=== PATIENT | female | born 1980 | race Caucasian/White ===

== ENCOUNTER → 2018-12-01 18:47 | Emergency (ER) | payer BC ==
[~2018-12-01 18:47] MED LIST: Cephalexin CAP* 500 MG PO ONE; Tetan/Diph/Pertus SYR(Tdap)* 0.5 ML SYR(BOOSTRIX) use SYR IM ONE
--- NOTE | 2018-12-01 20:33 | ED ---
Laceration/Wound HPI - HPI Summary HPI Summary: Patient complains of laceration to dorsal surface of left hand proximal to MCP of second digit of left hand. Denies any other injury symptoms or pain. No anti-coag. Bleeding controlled. - History of Current Complaint Stated Complaint: "LEFT POINTER CUT" PER PT Time Seen by Provider: 12/01/18 19:59 Hx Obtained From: Patient Mechanism of Injury: Sharp/Blunt Trauma Onset/Duration: Sudden Onset Aggravating: Nothing Alleviating: Nothing Current Severity: None Pain Intensity: 0 Pain Scale Used: 0-10 Numeric Associated Signs & Symptoms: Negative - Allergy/Home Medications Allergies/Adverse Reactions: Allergies Allergy/AdvReac Type Severity Reaction Status Date / Time No Known Allergies Allergy Verified 12/01/18 19:13 PMH/Surg Hx/FS Hx/Imm Hx Endocrine/Hematology History: Denies: Hx Anticoagulant Therapy Cardiovascular History: Denies: Hx Pacemaker/ICD History: Denies: Hx Dialysis Sensory History: Denies: Hx Contacts or Glasses Opthamlomology History: Denies: Hx Contacts or Glasses EENT History: Denies: Hx Deafness Neurological History: Denies: Hx Dementia Psychiatric History: Denies: Hx Autism Infectious Disease History: No Infectious Disease History: Denies: Traveled Outside the [place] in Last 30 Days - Social History Alcohol Use: None Substance Use Type: Reports: None Smoking Status (MU): Never Smoked Tobacco Review of Systems Constitutional: Negative Eyes: Negative ENT: Negative Cardiovascular: Negative Respiratory: Negative Gastrointestinal: Negative Genitourinary: Negative Musculoskeletal: Negative Skin: Other Neurological: Negative Psychological: Normal All Other Systems Reviewed And Are Negative: Yes Physical Exam - Summary Physical Exam Summary: Laceration to dorsal surface of left hand just proximal to MCP joint of second digit of left hand. Flexion and extension intact at each individual joint of second digit. Triage Information Reviewed: Yes Vital Signs On Initial Exam: Initial Vitals Temp Pulse Resp BP Pulse Ox 98.5 F 72 16 107/79 99 12/01/18 19:10 12/01/18 19:10 12/01/18 19:10 12/01/18 19:10 12/01/18 19:10 Vital Signs Reviewed: Yes Appearance: Positive: Well-Appearing Skin: Positive: Warm Head/Face: Positive: Normal Head/Face Inspection Eyes: Positive: Normal Neck: Positive: Supple Respiratory/Lung Sounds: Positive: Clear to Auscultation Cardiovascular: Positive: Normal Abdomen Description: Positive: Nontender Musculoskeletal: Positive: Normal Neurological: Positive: Normal Psychiatric: Positive: Normal AVPU Assessment: Alert - Edson Coma Scale Best Eye Response: 4 - Spontaneous Best Motor Response: 6 - Obeys Commands Best Verbal Response: 5 - Oriented Coma Scale Total: 15 Procedures - Laceration/Wound Repair 1 Location: upper extremity Description: Linear Anesthesia: Local, 1.0% Length, Depth and Shape: 3cm x .5cm Betadine Prep?: Yes Irrigated w/ Saline (ccs): 100 Laceration/Wound Explored: clean Debridement: minimal Number of Sutures: 3 - 5.0 ethilon Layer Closure?: No Sterile Dressing Applied?: No Diagnostics - Vital Signs Vital Signs Temp Pulse Resp BP Pulse Ox 12/01/18 19:10 98.5 F 72 16 107/79 99 - Laboratory Lab Statement: Any lab studies that have been ordered have been reviewed, and results considered in the medical decision making process. Laceration Repair Course/Dx - Course Course Of Treatment: Patient complains of laceration to dorsal surface of left hand proximal to MCP of second digit of left hand. Denies any other injury symptoms or pain. No anti-coag. Bleeding controlled. Physical exam: Laceration to dorsal surface of left hand just proximal to MCP joint of second digit of left hand. Flexion and extension intact at each individual joint of second digit. Vital signs within normal limits. Wound sutured. Rx for Keflex. Tetanus booster. - Clinical Impression Provider Diagnoses: Laceration Discharge - Sign-Out/Discharge Documenting (check all that apply): Patient Departure Patient Received Moderate/Deep Sedation with Procedure: No - Discharge Plan Condition: Stable Disposition: HOME Prescriptions: Cephalexin CAP* [Keflex CAP*] 500 mg PO TID 3 Days #9 cap Patient Education Materials: Care For Your Stitches (ED), Finger Laceration (ED ), Stitches Removal (ED) Referrals: Laurel Quintanilla MD [Primary Care Provider] - Additional Instructions: Take antibiotics as directed. Starting tomorrow he may wash with warm running water and soap. Do not submerge for couple days. Keep covered when not washing. Sutures out in 10 days. Return to the ED for any new or worsening symptoms. - Billing Disposition and Condition Condition: STABLE Disposition: Home
[2018-12-01 20:52] VITALS: BP 99/71
== END | disposition home or self-care (01) ==
LOC: ED 18:47
DX: S61.211A Laceration without foreign body of left index finger without damage to nail, initial encounter (principal); W26.9XXA Contact with unspecified sharp object(s), initial encounter; Y92.9 Unspecified place or not applicable; Z23 Encounter for immunization
CPT/HCPCS: 12002; 90471; 90715; 99282; A9270-GY